=== PATIENT | female | born 1955 | race Caucasian/White ===

== ENCOUNTER → 2016-10-30 | Outpatient (CLI) | payer OTHER ==
[2015-10-23 14:10] VITALS: BP 146/77
[~2016-10-30] MED LIST: ALPR0.254 PO; BUPR300T4 PO; CETI10TA22 PO; DEXL60CA PO; ESCI10TA PO; ESTR1TAB5 PO; FLUT9.9S NS; GUAI-40 PO; LEVO175T5 PO; LOSA100T6 PO; MAGN400C PO; MULT1TAB52 PO; ROPI1TAB PO; TIZA4TAB PO; TRAM50TA PO; TRIA1TAB5 PO; [UNRECOGNIZED DRUG - CODE] PO
--- NOTE | 2016-10-30 10:45 | RAD ---
Chest, 2 views, 10/30/2016: History: Cough, chest congestion Comparison is made to a study from 03/26/2014. The heart size and pulmonary vascularity are normal. No pulmonary infiltrate is seen. There is no evidence of pleural fluid. There is a mild thoracic scoliosis with associated degenerative changes. IMPRESSION: No acute cardiopulmonary abnormality is detected.
== END | disposition home or self-care (01) ==
LOC: DXRADRC 07:34
PROVIDERS: ATTEND Physician Assistant Medical
DX: M41.84 Other forms of scoliosis, thoracic region (principal)
CPT/HCPCS: 71020

== ENCOUNTER → 2017-06-20 | Outpatient (CLI) | payer OTHER ==
[2015-10-23 14:10] VITALS: BP 146/77
[~2017-06-20] MED LIST changes: -DEXL60CA PO; +DEXL60CA2 PO; -ESCI10TA PO; +ESCITALOPRAM OX10 MG PO; +IOHEXOL 240 MG/ML 50ML VIAL. ONE; +IOHEXOL 300 MG/ML 75 ML VIAL. IV ONE
--- NOTE | 2017-06-21 08:29 | RAD ---
CT of the abdomen and pelvis with contrast, 06/20/2017: History: Generalized abdominal pain and fever Multidetector CT imaging was performed following oral and IV administration of contrast. The gallbladder is surgically absent. The liver is of lower than normal density in a diffuse pattern compatible with fatty change. It measures 21 cm in craniocaudad extent at the level of the right lobe. No pancreatic abnormality is seen. The spleen is of normal size. No renal or adrenal abnormality is detected. There is minimal aortic calcific plaquing without evidence of aneurysm. No abdominal or pelvic adenopathy is seen. The uterus is surgically absent. There are scattered colonic diverticula, most numerous in the sigmoid region. No paracolonic inflammatory process is seen. The bowel loops are not dilated. A small hiatal hernia is noted. No free air or significant free fluid is evident in the abdomen or pelvis. There is a mild thoracolumbar scoliosis with moderate multilevel degenerative change in the lower lumbar spine. IMPRESSION: 1. Colonic diverticulosis. 2. Hepatic steatosis. 3. Small hiatal hernia. 4. No acute abdominal or pelvic abnormality is detected. PQRS Compliance Statement: One or more of the following individualized dose reduction techniques were utilized for this examination: 1. Automated exposure control 2. Adjustment of the mA and/or kV according to patient size 3. Use of iterative reconstruction technique
== END | disposition home or self-care (01) ==
LOC: CT 15:44
PROVIDERS: ATTEND Physician Assistant Medical
DX: K44.9 Diaphragmatic hernia without obstruction or gangrene (principal); R10.84 Generalized abdominal pain; R10.32 Left lower quadrant pain; K57.30 Diverticulosis of large intestine without perforation or abscess without bleeding; K76.0 Fatty (change of) liver, not elsewhere classified; R50.9 Fever, unspecified; Z90.49 Acquired absence of other specified parts of digestive tract; M41.85 Other forms of scoliosis, thoracolumbar region
CPT/HCPCS: 74177; Q9966; Q9967

== ENCOUNTER → 2017-07-06 | Outpatient (CLI) | payer OTHER ==
[2015-10-23 14:10] VITALS: BP 146/77
[~2017-07-06] MED LIST changes: -IOHEXOL 240 MG/ML 50ML VIAL. ONE; -IOHEXOL 300 MG/ML 75 ML VIAL. IV ONE
--- NOTE | 2017-07-06 08:32 | RAD ---
Complete abdominal ultrasound 07/06/2017 Indication: Abdominal pain. Elevated LFTs. Comparison study: None Discussion: Ultrasound evaluation of the abdomen was performed. Static images were submitted to PACS. Pancreas is poorly visualized. Visualized portions of the pancreatic body. Be grossly unremarkable. Visualized aorta and IVC are unremarkable. Liver is mildly enlarged measuring 19 mm longitudinally. Liver is diffusely hyperechoic suggesting hepatic steatosis. No focal hepatic lesions are seen. Limited visualization of portal venous flow appears to be grossly unremarkable. The right kidney is normal in appearance measuring 12.2 cm in length. The gallbladder is surgically absent. The common bile duct measures 8 mm which is within normal limits given prior cholecystectomy. Spleen is normal in size measuring 10.5 cm in length. Left kidney is unremarkable in appearance measuring 11.6 cm in length. Impression: 1. Mild hepatomegaly and hepatic steatosis 2. Prior cholecystectomy
[2017-07-06 09:03] LABS: ALBUMIN 3.5 g/dL (3.4-5.0); DIRECT BILIRUBIN 0.1 mg/dL (0.0-0.2); TOTAL BILIRUBIN 0.5 mg/dL (0.2-1.0); TOTAL PROTEIN 6.9 g/dL (6.4-8.2)
== END | disposition home or self-care (01) ==
LOC: US 07:36
PROVIDERS: ATTEND Internal Medicine Gastroenterology
DX: K76.0 Fatty (change of) liver, not elsewhere classified (principal); R79.89 Other specified abnormal findings of blood chemistry; Z90.49 Acquired absence of other specified parts of digestive tract
CPT/HCPCS: 36415; 76700; 80076

== ENCOUNTER → 2017-08-17 | Outpatient (CLI) | payer OTHER ==
[2015-10-23 14:10] VITALS: BP 146/77
[2017-08-17 16:36] LABS: ALBUMIN 3.9 g/dL (3.4-5.0); ALBUMIN/GLOBULIN RATIO 1.1 (1.0-1.7); CALCIUM 9.4 mg/dL (8.5-10.1); CREATININE 0.6 mg/dL (0.6-1.0); POTASSIUM 3.4 mmol/L (3.5-5.1); TOTAL BILIRUBIN 0.9 mg/dL (0.2-1.0); TOTAL PROTEIN 7.4 g/dL (6.4-8.2)
[2017-08-18 02:12] LABS: EBNA IGG 97.1 U/mL (0.0-17.9)
[2017-08-20 13:12] LABS: SMOOTH MUSCLE AB 6 Units (0-19)
[2017-08-20 18:09] LABS: ANA INTERP Positive (.)
== END | disposition home or self-care (01) ==
LOC: LAB 15:20
PROVIDERS: ATTEND Internal Medicine Gastroenterology
DX: K75.9 Inflammatory liver disease, unspecified (principal)
CPT/HCPCS: 36415; 80053; 86038; 86255; 86376; 86644; 86645; 86663; 86664

== ENCOUNTER → 2019-06-27 | Outpatient (CLI) | payer BC ==
[2015-10-23 14:10] VITALS: BP 146/77
[~2019-06-27] MED LIST changes: +LOSA100T14 PO; -LOSA100T6 PO; -TIZA4TAB PO; +TIZA4TAB2 PO
--- NOTE | 2019-06-27 13:28 | RAD ---
EXAM: Pelvic sonogram. HISTORY: Pain. TECHNIQUE: Transabdominal and transvaginal sonographic imaging of the pelvis was performed. COMPARISON: None. FINDINGS: The uterus is surgically absent. The ovaries are not seen. There are normal-appearing lymph nodes within cortices and benign fatty marina within the right inferior ventral pelvis at the site of concern. The largest of these measures 10 mm in long axis. There is no pelvic free fluid. IMPRESSION: 1. Surgically absent uterus. The ovaries are not seen and may be obscured due to bowel gas or also surgically absent. 2. Benign-appearing lymph nodes at the site of palpable concern along the right lower pelvis. Electronically signed by: Demetria Ghotra MD (06/27/2019 1:26 PM) [place] [id number]
== END | disposition home or self-care (01) ==
LOC: US 08:39
PROVIDERS: ATTEND Physician Assistant Medical
DX: R10.2 Pelvic and perineal pain (principal); Z90.710 Acquired absence of both cervix and uterus
CPT/HCPCS: 76830; 76856

== ENCOUNTER → 2021-07-11 | Outpatient (CLI) | payer BC ==
[2015-10-23 14:10] VITALS: BP 146/77
[~2021-07-11] MED LIST changes: -BUPR300T4 PO; +BUPR300T92 PO; -CETI10TA22 PO; +CETI10TA74 PO; +MULT-445 PO; -MULT1TAB52 PO; +TIZA-75 PO; -TIZA4TAB2 PO
--- NOTE | 2021-07-11 14:50 | RAD ---
EXAM: Chest, 2 views. HISTORY: Cough. COMPARISON: None. FINDINGS: 2 views of the chest are obtained. There is no infiltrate, pleural effusion or pneumothorax . The heart is normal in size. There is thoracolumbar scoliosis. IMPRESSION: No acute pulmonary finding. Electronically signed by: Demetria Ghotra MD (07/11/2021 2:48 PM) [id number]
== END ==
LOC: RAD 14:18
PROVIDERS: ATTEND Nurse Practitioner Family
DX: J40 Bronchitis, not specified as acute or chronic (principal); M41.85 Other forms of scoliosis, thoracolumbar region
CPT/HCPCS: 71046

== ENCOUNTER → 2021-08-19 | Outpatient (CLI) | payer BC ==
[2015-10-23 14:10] VITALS: BP 146/77
--- NOTE | 2021-08-19 15:18 | RAD ---
EXAM: Maxillofacial bone CT without contrast; neck CT without contrast. HISTORY: Facial numbness. Neck swelling. . TECHNIQUE: Computed tomographic images the maximal facial bones and neck were obtained without contra st. *One or more of the following individualized dose reduction techniques were utilized for this examina tion: 1. Automated exposure control. 2. Adjustment of the mA and/or kV according to patient size. 3. Use of iterative reconstruction technique. COMPARISON: None. FINDINGS: Maxillofacial bones: There is a small inferior left maxillary sinus mucous retention cyst with mild i nferior mucosal thickening. The ostiomeatal units are patent. There is leftward nasal septal deviatio n. There are multiple dental restorations. There is lucency surrounding the roots of the left second maxillary molar molar. The visualized portions of the brain are unremarkable. No calvarial lesion is seen. There is evidence of lens surgery. The mastoid air cells are clear. Neck: The airway is midline and widely patent. There is no lymphadenopathy. There are benign-appearin g parotid lymph nodes and cervical chain lymph nodes. There are tiny calcifications within the patient access associate ior right submandibular gland. There is a skin marker overlying the right submandibular gland. No sulaiman picious lesion is seen in this location. The thyroid gland is unremarkable. The lung apices are unrem arkable. There are degenerative changes involving the cervical spine. The combination of disc bulges with protrusions and endplate osteophytosis and facet and uncovertebral arthropathy contributes to mi ld to moderate right and moderate left foraminal stenosis at C3-C4, mild to moderate right and severe left foraminal stenosis at C4-C5, and moderate left foraminal stenosis at C5-C6. IMPRESSION: 1. No suspicious finding underlying the site of palpable concern within the right neck demarcated by a skin marker. There are few tiny calcifications within the underlying submandibular gland due to shane lolithiasis. 2. Multilevel degenerative change involving the cervical spine, resulting in stenosis as described ab ove. 3. Periapical lucency surrounding the roots of the left second maxillary molar. This can be seen with a periapical abscess. Correlate with dental exam findings. 4. Small left maxillary sinus mucous retention cyst and adjacent mucosal thickening. Electronically signed by: Demetria Ghotra MD (08/19/2021 3:16 PM) [id number]
== END ==
LOC: CT 13:10
PROVIDERS: ATTEND Physician Assistant Medical
DX: K11.5 Sialolithiasis (principal); M47.812 Spondylosis without myelopathy or radiculopathy, cervical region; M48.02 Spinal stenosis, cervical region; J34.1 Cyst and mucocele of nose and nasal sinus; J34.89 Other specified disorders of nose and nasal sinuses; J34.2 Deviated nasal septum; M50.20 Other cervical disc displacement, unspecified cervical region; R20.0 Anesthesia of skin; R22.1 Localized swelling, mass and lump, neck
CPT/HCPCS: 70486; 70490